=== PATIENT | male | born 1975 | race Caucasian/White ===

== ENCOUNTER 2019-12-22 12:50 | Emergency (ER) | payer SELFPAY ==
[2019-12-22 12:55] VITALS: BP 161/98; PULSE 103; RESP 24; TEMP 36.8; O2SAT 100
--- NOTE | 2019-12-22 12:58 | ECG_ITS ---
Measurements Intervals [place] Rate: 95 P: 39 MT: 182 QRS: 52 QRSD: 109 T: 14 QT: 346 QTc: 436 Interpretive Statements SINUS RHYTHM BASELINE ARTIFACT- I, II, III, AVR, AVL, AVF, V1 NORMAL ECG Electronically Signed On 12-23-2019 7:13:18 CDT by Michael Frazier D.O.
[2019-12-22] MEDS: ALPRAZOLAM 0.5 MG TABLET 1 MG PO (13:04)
--- NOTE | 2019-12-22 13:14 | ED.PSYCH ---
HPI - Psych General Chief Complaint: Psychiatric Symptoms Stated Complaint: sob Source: patient Mode of arrival: ambulatory Limitations: no limitations History of Present Illness HPI Narrative: this is a 44-year-old male patient with a history of depression /anxiety that presents with increasing anxiety currently is on antidepressant medication but had elevated levels of anxiety and smoked a couple of marijuana cigarettes which actually increased his anxiety level. Currently the patient is anxious denies chest pain no abdominal pain does feel short of breath and has some nausea with no vomiting no diarrhea no fever or chills. complaint: other (anxious) Onset (ago): hour(s) Duration: constant History of same: Yes Relieving factors: medication Exacerbating factors: drug use Context: recent drug abuse ( Marijuana) Associated psychiatric symptoms: depression Associated symptoms: shortness of breath and nausea Treatments prior to arrival: none Related Data Home Medications Medication Instructions Recorded Confirmed bupropion HCl 300 mg PO DAILY 12/22/19 12/22/19 citalopram 40 mg PO DAILY 12/22/19 12/22/19 fenofibrate 160 mg PO DAILY 12/22/19 12/22/19 lamotrigine 150 mg PO DAILY 12/22/19 12/22/19 levothyroxine 25 mcg PO DAILY 12/22/19 12/22/19 Allergies Allergy/AdvReac Type Severity Reaction Status Date / Time No Known Allergies Allergy Verified 12/22/19 13:07 Review of Systems Review of Systems: All systems reviewed & are unremarkable except as noted in HPI and below PMFSH Past Medical History Medical History Anxiety Depression Exam Const: General: no acute distress and alert Orientation/consciousness: patient oriented x3 HENMT: Head: normal to inspection Eyes: Conjunctivae: conjunctivae normal Pupils: Equal, round and reactive pupils present Neck: Neck: normal visual inspection and no lymphadenopathy Chest: Chest palpation & inspection: normal inspection of the chest and abnormal inspection of the chest Resp: Effort & Inspection: normal respiratory effort Auscultation: clear to auscultation bilaterally Cardio: Rate: regular rate Rhythm: regular rhythm GI: GI Palp: Yes Soft to palpation : Testes: Testes normal Skin: General skin exam: normal color Rashes: no rashes Neuro: General: patient oriented x3, moves all extremities, no meningeal signs and no focal motor deficits Extrem: General: normal to inspection Psych: Attitude: cooperative Other: anxious mood Course Vital Signs Vital signs: Vital Signs Temperature 36.8 C 12/22/19 12:55 Pulse Rate 103 H 12/22/19 12:55 Respiratory Rate 24 H 12/22/19 12:55 Blood Pressure 161/98 H 12/22/19 12:55 Pulse Oximetry 100 12/22/19 12:55 Temperature 36.8 C 12/22/19 12:55 Pulse Rate 103 H 12/22/19 12:55 Respiratory Rate 24 H 12/22/19 12:55 Blood Pressure 161/98 H 12/22/19 12:55 Pulse Oximetry 100 12/22/19 12:55 MDM - Psych ECG Data EKG #1: Attestation: I personally reviewed and interpreted this ECG as follows: ECG completion date: 12/22/19 ECG completion time: 13:06 Prior ECG tracings: not available for review EKG Interpretation: normal rate Critical Care Time Critical Care Time Critical Care Time: No Discharge Plan Discharge Clinical Impression: Anxiety Patient Disposition: Home, Self-Care Condition: Stable Instructions: Antibiotic Form, Anxiety (ED) Additional Instructions: Take medicine as prescribed, and follow-up with primary care physician if symptoms persist or worsen. Prescriptions: New alprazolam [Xanax] 0.5 mg tablet 0.5 mg PO TID PRN (Reason: anxiety) Qty: 14 RF: 0 No Action citalopram 40 mg tablet 40 mg PO DAILY RF: 0 levothyroxine 25 mcg tablet 25 mcg PO DAILY RF: 0 lamotrigine 100 mg tablet 150 mg PO DAILY RF: 0 bupropion HCl 300 mg tablet extended
[2019-12-22 13:26] VITALS: BP 137/94; PULSE 80; RESP 18; O2SAT 95
[2019-12-22 13:45] LABS: Hematocrit 44.1 % (40.0-54.0); Hemoglobin 14.9 g/dL (14.0-18.0); Mean Corpuscular HGB Conc 33.8 g/dL (32.0-36.0); Mean Corpuscular Hemoglobin 30.7 pg (27.0-31.0); Mean Corpuscular Volume 90.7 fL (78.0-102.0); Mean Platelet Volume 10.1 fl (8.7-11.0); Platelet Count Result 238 K/mm3 (150-420); Red Blood Count 4.86 M/mm3 (4.70-6.10); Red Cell Distribution Width 13.2 % (11.6-14.4); White Blood Count 5.2 K/mm3 (4.8-10.8)
[2019-12-22 14:02] LABS: Alanine Aminotransferase 36 U/L (16-63); Albumin Level 4.2 g/dL (3.4-5.0); Alkaline Phosphatase 39 U/L (46-116); Anion Gap 15.9 mmol/L (7-16); Aspartate Amino Transferase 21 U/L (15-37); Bilirubin,Total 0.3 mg/dL (0.00-1.00); Blood Urea Nitrogen 12 mg/dL (7-18); Calcium 9.1 mg/dL (8.5-10.1); Carbon Dioxide 24 mmol/L (21-32); Chloride 103 mmol/L (98-108); Estimated CRCL calculation 83 ml/min; Estimated Glomerular Filt Rate > 60; Glucose 128 mg/dL (70-99); Osmolality Calculated 289 mOsm/kg (285-295); Potassium 3.9 mmol/L (3.5-5.1); Sodium 139 mmol/L (136-145); Total Protein 7.3 g/dL (6.4-8.2)
[2019-12-22 14:03] LABS: Troponin I < 0.02 ng/mL (0.00-0.056)
[2019-12-22 14:15] VITALS: BP 139/89; PULSE 95; RESP 18; O2SAT 98
== END 2019-12-22 14:16 | disposition home or self-care (01) ==
PROVIDERS: Emergency Provider Emergency Medicine
DX: F41.9 Anxiety disorder, unspecified (principal)
CPT/HCPCS: 36415; 80053; 84484; 85027; 93005; 99283; 99284; A9270

== ENCOUNTER 2021-04-13 19:32 | Emergency (ER) | payer OTHER, SELFPAY ==
[2021-04-13 20:58] VITALS: BP 153/97; PULSE 88; RESP 20; TEMP 36.6; O2SAT 95
--- NOTE | 2021-04-13 21:34 | ED.EAR ---
HPI - Ear Problem General Chief complaint: Ear Stated complaint: ear pain Time Seen by Provider: 04/13/21 19:34 Source: patient and RN notes reviewed Mode of arrival: ambulatory Limitations: no limitations History of Present Illness Complaint: ear pain Location: right ear Duration: constant Severity: mild Relieving factors: NDAIDs Exacerbating factors: nothing Discharge from ear: Reports no Associated symptoms ear: tinnitus Treatment prior to arrival: none Related Data Home Medications Medication Instructions Recorded Confirmed citalopram 40 mg PO DAILY 12/22/19 04/13/21 lamotrigine 150 mg PO DAILY 12/22/19 04/13/21 levothyroxine 25 mcg PO DAILY 12/22/19 04/13/21 bupropion HCl 300 mg PO DAILY 04/13/21 04/13/21 famotidine 20 mg PO DAILY 04/13/21 04/13/21 Allergies Allergy/AdvReac Type Severity Reaction Status Date / Time No Known Allergies Allergy Verified 04/13/21 21:08 Review of Systems Review of Systems: All systems reviewed & are unremarkable except as noted in HPI and below Constitutional: Constitutional: Reports as per HPI and Reports no additional constitutional complaints Eyes: Eyes: Reports as per HPI and Reports no additional eye complaints ENT: Reports system reviewed and no additional complaints, except as documented and Reports as per HPI Cardiovascular: Cardiovascular: Reports as per HPI and Reports no additional cardiovascular complaints Respiratory: Respiratory: Reports as per HPI and Reports no additional respiratory complaints Gastrointestinal: Gastrointestinal: Reports as per HPI and Reports no additional gastrointestinal complaints Genitourinary: Genitourinary: Reports no additional male genitourinary complaints and Reports as per HPI Musculoskeletal: Musculoskeletal: Reports no additional musculoskeletal complaints and Reports as per HPI Integumentary/Breasts: Skin/Breast: Reports system reviewed and no additional complaints, except as docu and Reports as per HPI Neurologic: Reports system reviewed and no additional complaints, except as documented and Reports as per HPI Psychiatric: Psychiatric: Reports no additional psychiatric complaints and Reports as per HPI Endocrine: Endocrine: Reports no additional endocrine complaints and Reports as per HPI Hematologic/Lymphatic: Hematologic/Lymphatic: Reports no additional hematologic/lymphatic complaints and Reports as per HPI Allergic/Immunologic: Allergic/Immunologic: Reports no additional allergic/immunologic complaints and Reports as per HPI PMFSH Past Medical History Medical History (Updated 04/18/21 @ 08:49 by Cheng Cat MD) Anxiety Depression Social History Social History Gender identity (if verbalized by the patient): Male Exam Const: General: no acute distress and alert Nutritional Appearance: well nourished Orientation/consciousness: patient oriented x3 HENMT: Head: normal to inspection Ears: TM abnormal (mild dull left TM redness) Mouth: Yes lip normal and Yes moist mucous membranes Teeth and gingiva: dentition normal Throat: posterior oropharynx normal Eyes: Conjunctivae: conjunctivae normal Pupils: Equal, round and reactive pupils present EOM: EOMs intact bilaterally Neck: Neck: normal visual inspection and no lymphadenopathy Chest: Chest palpation & inspection: normal inspection of the chest Resp: Effort & Inspection: normal respiratory effort Auscultation: clear to auscultation bilaterally Cardio: Rate: regular rate Rhythm: regular rhythm GI: Inspection: distended Auscultation: normal bowel sounds : General: Yes no CVA tenderness Male General Exam: Yes normal external exam Testes: Testes normal Back/Spine/Pelvis: Back: no CVA tenderness Skin: General skin exam: normal color Rashes: no rashes Neuro: General: patient oriented x3, moves all extremities and no focal motor deficits Extrem: General: normal to inspection
[2021-04-13] MEDS: guaiFENesin 12 HR 600 MG TABCR PO (21:59)
[2021-04-13] MEDS: IBUPROFEN 400 MG TABLET 800 MG PO (21:59)
[2021-04-13 22:00] VITALS: BP 145/96; PULSE 84; RESP 20; TEMP 36.5; O2SAT 96
== END 2021-04-13 22:01 | disposition home or self-care (01) ==
PROVIDERS: Emergency Provider Emergency Medicine; PCP Family Medicine
DX: H60.91 Unspecified otitis externa, right ear (principal); H69.80 Other specified disorders of Eustachian tube, unspecified ear
CPT/HCPCS: 99283; A9270

== ENCOUNTER 2021-09-25 12:51 | Emergency (ER) | payer OTHER, SELFPAY ==
--- NOTE | ~2021-09-25 | XR_ITS ---
EXAMINATION: XR chest 1V portable DATE: 09/25/2021 13:56 INDICATION: Near syncope. TECHNIQUE: A single frontal view of the chest was obtained. COMPARISON: Chest single view 12/15/2018 FINDINGS: The chest demonstrates clear lungs without pneumonia, pleural effusion, or pneumothorax. Th e heart size is normal. IMPRESSION: 1. No acute cardiopulmonary disease. Reviewed, dictated and finalized at location A. D EFFECTS PERSON
--- NOTE | ~2021-09-25 | CT_ITS ---
EXAMINATION: CT brain wo con DATE: 09/25/2021 13:56 INDICATION: Syncope. TECHNIQUE: Computed tomography (CT) of the head was performed without intravenous contrast. The mA wa s adjusted according to patient size. Iterative reconstruction technique was employed. The dose-lengt h product was 681.00 mGy-cm. COMPARISON: Head CT 09/20/2018 FINDINGS: There is no intracranial hemorrhage, acute infarction, or abnormal intracranial mass lesion . The ventricles are normal in size. There is mild mucosal thickening in the paranasal sinuses. The o rbits are normal. The mastoid air cells are normal. IMPRESSION: 1. Normal brain. Reviewed, dictated and finalized at location A. HEMMER IMPRESSION: 1. Normal brain.
[2021-09-25 13:00] VITALS: BP 131/80; PULSE 70; RESP 20; TEMP 35.7; O2SAT 99
--- NOTE | 2021-09-25 13:28 | ECG_ITS ---
Measurements Intervals [place] Rate: 52 P: 44 [place]: 174 QRS: 35 QRSD: 113 T: 25 QT: 402 QTc: 376 Interpretive Statements SINUS BRADYCARDIA INTRAVENTRICULAR CONDUCTION DELAY MINIMAL Q WAVES- INFERIOR LEADS BASELINE ARTIFACT- I, III, AVR, AVL, AVF BORDERLINE ECG Electronically Signed On 09-25-2021 16:13:19 [employer] by Michael Frazier D.O.
--- NOTE | 2021-09-25 13:34 | ED.DIZZY ---
HPI - Dizziness General Chief Complaint: Dizziness Stated Complaint: dizzy/feeling sick/fatigue/not sleeping Time Seen by Provider: 09/25/21 12:53 Source: patient and RN notes reviewed Mode of arrival: ambulatory Limitations: no limitations History of Present Illness MD elicited complaint: dizziness and lightheadedness Onset (ago): day(s) (1) Timing: sudden onset Severity: mild Description: lightheadedness History of similar symptoms: Yes Relieving factors: nothing Associated symptoms: nausea Related Data Home Medications Medication Instructions Recorded Confirmed citalopram 40 mg PO DAILY 12/22/19 04/13/21 lamotrigine 150 mg PO DAILY 12/22/19 04/13/21 levothyroxine 25 mcg PO DAILY 12/22/19 04/13/21 bupropion HCl 300 mg PO DAILY 04/13/21 04/13/21 famotidine 20 mg PO DAILY 04/13/21 04/13/21 Allergies Allergy/AdvReac Type Severity Reaction Status Date / Time No Known Allergies Allergy Verified 04/13/21 21:08 Review of Systems Review of Systems: All systems reviewed & are unremarkable except as noted in HPI and below Neurologic: Reports dizziness PMFSH Past Medical History Medical History (Updated 09/25/21 @ 14:47 by Cheng Cat MD) Anxiety Depression Social History Social History Gender identity (if verbalized by the patient): Male Exam Const: General: no acute distress and alert Nutritional Appearance: well nourished Orientation/consciousness: patient oriented x3 HENMT: Head: normal to inspection Ears: TM's normal bilaterally General nose exam: Normal external nose present and Normal nares present Mouth: Yes moist mucous membranes Throat: posterior oropharynx normal Eyes: Conjunctivae: conjunctivae normal Pupils: Equal, round and reactive pupils present EOM: EOMs intact bilaterally Neck: Neck: normal visual inspection and no lymphadenopathy Chest: Chest palpation & inspection: normal inspection of the chest Resp: Effort & Inspection: normal respiratory effort Auscultation: clear to auscultation bilaterally Cardio: Rate: regular rate Rhythm: regular rhythm GI: GI Palp: Yes Soft to palpation and No Tenderness to palpation present (GI) : General: Yes bladder normal to palpation and Yes no CVA tenderness Male General Exam: Yes normal external exam Testes: Testes normal Back/Spine/Pelvis: Back: no CVA tenderness Skin: General skin exam: normal color Rashes: no rashes Neuro: General: patient oriented x3, moves all extremities, no meningeal signs, no focal motor deficits and CN's II-XI intact bilaterally Extrem: General: normal to inspection and no pedal edema Psych: Mental Status: mental status grossly normal Affect: normal affect Attitude: cooperative Thought content: Yes Normal thought content present Course Course Emergency Course: Pt ambulated normally in the ED. no acute sxs. Reevaluation(s) Reevaluation #1: vss. Date: 09/25/21 Time: 14:01 Vital Signs Vital signs: Vital Signs Temperature 35.7 C L 09/25/21 13:00 Pulse Rate 70 09/25/21 13:00 Respiratory Rate 20 09/25/21 13:00 Blood Pressure 131/80 09/25/21 13:00 Pulse Oximetry 99 09/25/21 13:00 Temperature 35.7 C L 09/25/21 13:00 Pulse Rate 70 09/25/21 13:00 Respiratory Rate 20 09/25/21 13:00 Blood Pressure 131/80 09/25/21 13:00 Pulse Oximetry 99 09/25/21 13:00 MDM - Dizziness Lab Data Result diagrams: 09/25/21 13:39 09/25/21 13:39 Labs: Lab Results 09/25/21 09/25/21 09/25/21 Range/Units 13:39 13:39 13:39 WBC 6.1 (4.8-10.8) K/mm3 RBC 5.02 (4.70-6.10) M/mm3 Hgb 16.2 (14.0-18.0) g/dL Hct 47.1 (40.0-54.0) % MCV 93.8 (78.0-102.0) fL MCH 32.3 H (27.0-31.0) pg MCHC 34.4 (32.0-36.0) g/dL RDW 12.4 (11.6-14.4) % Plt Count 227 (150-420) K/mm3 MPV 10.6 (8.7-11.0) fl Immature Gran % (Auto) 0.3 H (0.0-0.0) % Neut % (Auto) 5
[2021-09-25 13:49] LABS: Basophils Absolute Auto 0.06 K/mm3 (0.00-0.10); Eosinophils Absolute Auto 0.13 K/mm3 (0.02-0.50); Eosinophils Percent Auto 2.1 % (1.0-6.0); Hematocrit 47.1 % (40.0-54.0); Hemoglobin 16.2 g/dL (14.0-18.0); Immature Granulocyte Absolute 0.02 K/mm3 (0.00-0.00); Immature Granulocyte Percent A 0.3 % (0.0-0.0); Lymphocytes Percent Auto 34.3 % (18.0-42.0); Mean Corpuscular HGB Conc 34.4 g/dL (32.0-36.0); Mean Corpuscular Hemoglobin 32.3 pg (27.0-31.0); Mean Corpuscular Volume 93.8 fL (78.0-102.0); Mean Platelet Volume 10.6 fl (8.7-11.0); Monocytes Absolute Auto 0.48 K/mm3 (0.10-0.90); Monocytes Percent Auto 7.8 % (2.0-11.0); Neutrophils Absolute Auto 3.3 K/mm3 (1.7-7.2); Neutrophils Percent Auto 54.5 % (50.0-70.0); Platelet Count Result 227 K/mm3 (150-420); Red Blood Count 5.02 M/mm3 (4.70-6.10); Red Cell Distribution Width 12.4 % (11.6-14.4); White Blood Count 6.1 K/mm3 (4.8-10.8)
[2021-09-25] MEDS: ONDANSETRON INJ 4 MG/2 ML VIAL IV PUSH (14:00)
[2021-09-25] MEDS: SODIUM CHLORIDE 0.9% IV 1,000 ML 999 ML IV CONT (14:00)
[2021-09-25] MEDS: IBUPROFEN 400 MG TABLET 800 MG PO (14:01)
[2021-09-25 14:06] LABS: Amphetamine Screen Urine Negative (Negative); Barbiturate Screen Urine Negative (Negative); Benzodiazepines Screen Urine Negative (Negative); Cannabinoid Screen Urine Positive (Negative); Cocaine Screen Urine Negative (Negative); Methadone Screen Urine Negative (Negative); Opiate Screen Urine Negative (Negative); Phencyclidine Screen Urine Negative (Negative)
[2021-09-25 14:10] LABS: Alanine Aminotransferase 83 U/L (16-63); Albumin Level 4.2 g/dL (3.4-5.0); Alkaline Phosphatase 53 U/L (46-116); Anion Gap 9 mmol/L (8-16); Aspartate Amino Transferase 32 U/L (15-37); Bilirubin,Total 0.4 mg/dL (0.00-1.00); Blood Urea Nitrogen 11 mg/dL (7-18); Calcium 9.4 mg/dL (8.5-10.1); Carbon Dioxide 28 mmol/L (21-32); Chloride 101 mmol/L (98-108); Estimated CRCL calculation 87 ml/min; Estimated Glomerular Filt Rate > 60; Ethanol 5 mg/dL (0-6); Glucose 110 mg/dL (70-99); Osmolality Calculated 286 mOsm/kg (285-295); Potassium 4.1 mmol/L (3.5-5.1); Sodium 138 mmol/L (136-145); Total Protein 7.6 g/dL (6.4-8.2); Troponin I 4.9 ng/L (0.00-60.4)
[2021-09-25 14:18] LABS: SARS-CoV-2 RNA PCR Negative (Negative)
[2021-09-25 14:51] VITALS: BP 125/78; PULSE 78; RESP 20; TEMP 37.1; O2SAT 97
== END 2021-09-25 14:52 | disposition home or self-care (01) ==
PROVIDERS: Emergency Provider Emergency Medicine; PCP Family Medicine
DX: B34.9 Viral infection, unspecified (principal); Z20.822 Contact with and (suspected) exposure to COVID-19
CPT/HCPCS: 36415; 70450; 71045; 80053; 80307; 84484; 85025; 93005; 96361; 96374; 99283; 99284; A9270; C9803; J2405; J7030; U0003; U0005

== ENCOUNTER 2021-11-04 17:24 | Emergency (ER) | payer SELFPAY ==
[2021-11-04 17:35] VITALS: BP 149/97; PULSE 88; RESP 16; TEMP 35.9; O2SAT 98
[2021-11-04] MEDS: DACRIOSE EYE IRRIGATION 118 ML BOTTLE (17:50)
[2021-11-04] MEDS: FLUORESCEIN SOD 1 MG/STRIP (17:50)
[2021-11-04] MEDS: TETRACAINE HCL 0.5% OPHTH SOLN 4 ML BTL 1 DROP (17:50)
--- NOTE | 2021-11-04 17:50 | ED.EYEPROB ---
HPI - Eye Problem General Chief complaint: Eye Problems Stated complaint: rust in eye Source: patient Mode of arrival: ambulatory Limitations: no limitations History of Present Illness HPI Narrative: This is a 46-year-old gentleman that presents with irritation to the right eye while working had pea some metal or rest that flew into his right eye causing irritation and foreign body sensation with some redness with no blurry vision no visual changes. Patient is up-to-date with his tetanus vaccine currently there is no drainage or discharge. chief complaint: eye pain, eye redness, eye injury and foreign body Onset (ago): hour(s) Onset description: sudden Duration: improved Location: right eye Eye Symptoms: redness and foreign body sensation Place: home Mechanism: occurred while hammering/grinding If Pain, Quality: burning Related Data Home Medications Medication Instructions Recorded Confirmed citalopram 40 mg PO DAILY 12/22/19 11/04/21 levothyroxine 25 mcg PO DAILY 12/22/19 11/04/21 bupropion HCl 300 mg PO DAILY 04/13/21 11/04/21 famotidine 20 mg PO DAILY 04/13/21 11/04/21 Allergies Allergy/AdvReac Type Severity Reaction Status Date / Time No Known Allergies Allergy Verified 11/04/21 17:38 Review of Systems Review of Systems: All systems reviewed & are unremarkable except as noted in HPI and below PMFSH Past Medical History Medical History (Updated 11/04/21 @ 17:56 by Roman Pratt MD) Anxiety Depression Social History Social History Gender identity (if verbalized by the patient): Male Exam Const: General: no acute distress and alert Orientation/consciousness: patient oriented x3 HENMT: Head: normal to inspection Eyes: Pupils: Equal, round and reactive pupils present Other: Right eye irritation with some erythema to the conjunctiva foreign body sensation. Neck: Neck: normal visual inspection, no lymphadenopathy and no meningeal signs Chest: Chest palpation & inspection: normal inspection of the chest Resp: Effort & Inspection: normal respiratory effort Cardio: Rate: regular rate Rhythm: regular rhythm GI: GI Palp: Yes Soft to palpation : Testes: Testes normal Urinary Catheter: Urinary Catheter: patent and draining Back/Spine/Pelvis: Back: no CVA tenderness Skin: General skin exam: normal color Rashes: no rashes Neuro: General: patient oriented x3 and moves all extremities Extrem: General: normal to inspection Psych: Mental Status: mental status grossly normal Affect: normal affect Attitude: cooperative Course Course Emergency Course: Use tetracaine to numb the right eye was swept with a cotton swab and no foreign object was some elicited, irrigated the right eye with saline solution, floor seen stain was applied and there was no corneal abrasions. Will instill antibiotic eye drop to the right eye. Vital Signs Vital signs: Vital Signs Temperature 35.9 C L 11/04/21 17:35 Pulse Rate 88 11/04/21 17:35 Respiratory Rate 16 11/04/21 17:35 Blood Pressure 149/97 H 11/04/21 17:35 Pulse Oximetry 98 11/04/21 17:35 Temperature 35.9 C L 11/04/21 17:35 Pulse Rate 88 11/04/21 17:35 Respiratory Rate 16 11/04/21 17:35 Blood Pressure 149/97 H 11/04/21 17:35 Pulse Oximetry 98 11/04/21 17:35 Procedures FB Removal Eye Foreign Body #1: Foreign Body Removal Date: 11/04/21 Foreign Body Removal Time: 17:53 Time Out performed: Yes Location: eye (R) Topical anesthetic used: tetracaine Foreign body: other ( No foreign object listed, there was some Cotton that was removed the patient used earlier) Evidence of corneal penetration: No Technique: irrigation Procedure performed under: direct visualization with magnification Post-procedure medication: ophthalmic antibiotic Patient tolerated procedure: well Critical Care T
[2021-11-04] MEDS: NEOMYCIN/POLYMYXIN/HYDROCORT 7.5 ML EYE DROPS (*BKC) 1 DROP RIGHT EYE (18:09)
[2021-11-04 18:19] VITALS: BP 151/93; PULSE 71; RESP 16; TEMP 36.4; O2SAT 99
== END 2021-11-04 18:24 | disposition home or self-care (01) ==
PROVIDERS: Emergency Provider Emergency Medicine; PCP Family Medicine
DX: T15.91XA Foreign body on external eye, part unspecified, right eye, initial encounter (principal)
CPT/HCPCS: 99283; A9270

== ENCOUNTER 2021-12-18 23:01 | Emergency (ER) | payer SELFPAY ==
--- NOTE | 2021-12-18 23:14 | ED.GENADULT ---
HPI - General Adult General Chief complaint: Unspecified Stated complaint: nausea, headache, elevated BP, visual disturbance Time Seen by Provider: 12/18/21 23:18 Source: patient History of Present Illness HPI narrative: 46-year-old male with a history of anxiety/ depression, COVID vaccinated, presents with a one-week history of -- headache. Patient has headaches off and in the past his current headache much worse than his prior headaches. He had a CT of the head in August of this year which unremarkable. -- nausea Without any abdominal pain or vomiting. -- chest pressure. Patient has a history of chronic chest pressure. He has not had any prior stress tests. the pain is not related to exercise or activity. -- elevated blood pressure Onset (ago): day(s) ( started 7 days ago.) Location: head and chest Radiation: non-radiation Severity: mild Quality: aching Pain Consistency: intermittent Relieving factors: none Exacerbating factors: none Associated symptoms: denies other symptoms Treatments prior to arrival: none Related Data Home Medications Medication Instructions Recorded Confirmed levothyroxine 25 mcg PO DAILY 12/22/19 12/18/21 bupropion HCl 300 mg PO DAILY 04/13/21 12/18/21 famotidine 20 mg PO DAILY 04/13/21 12/18/21 Allergies Allergy/AdvReac Type Severity Reaction Status Date / Time No Known Allergies Allergy Verified 11/04/21 17:38 Review of Systems Review of Systems: All systems reviewed & are unremarkable except as noted in HPI and below Constitutional: Constitutional: Reports as per HPI, Reports no additional constitutional complaints and Reports headache(s) Eyes: Eyes: Reports as per HPI and Reports no additional eye complaints ENT: Reports system reviewed and no additional complaints, except as documented and Reports as per HPI Cardiovascular: Cardiovascular: Reports as per HPI, Reports no additional cardiovascular complaints and Reports chest pain ( Chest discomfort which is unrelated to activity or exercise. ) Comments: the chest discomfort usually comes on nightly after he eats Respiratory: Respiratory: Reports as per HPI and Reports no additional respiratory complaints Gastrointestinal: Gastrointestinal: Reports as per HPI and Reports no additional gastrointestinal complaints Genitourinary: Genitourinary: Reports no additional male genitourinary complaints and Reports as per HPI Musculoskeletal: Musculoskeletal: Reports no additional musculoskeletal complaints and Reports as per HPI Integumentary/Breasts: Skin/Breast: Reports system reviewed and no additional complaints, except as docu and Reports as per HPI Neurologic: Reports system reviewed and no additional complaints, except as documented and Reports as per HPI Psychiatric: Psychiatric: Reports no additional psychiatric complaints, Reports as per HPI and Reports anxiety Endocrine: Endocrine: Reports no additional endocrine complaints and Reports as per HPI Hematologic/Lymphatic: Hematologic/Lymphatic: Reports no additional hematologic/lymphatic complaints and Reports as per HPI Allergic/Immunologic: Allergic/Immunologic: Reports no additional allergic/immunologic complaints and Reports as per HPI [facility] Past Medical History Medical History (Updated 12/19/21 @ 00:27 by George Olmedo MD) Anxiety Depression Social History Social History Gender identity (if verbalized by the patient): Male Exam Const: General: cooperative, healthy appearing, comfortable and no acute distress HENMT: Head: normal to inspection, normocephalic and atraumatic Ears: hearing grossly normal bilaterally General nose exam: Normal external nose present Face and sinus: normal facial exam Mouth: Yes Normal oral and palatal mucosa present, Yes lip normal and Yes tongue normal Teeth and gingiva: dentition normal Throat: posterior oropharynx normal Eyes: General: appearance normal, marly
[2021-12-18 23:24] VITALS: BP 152/105; PULSE 86; RESP 18; TEMP 36.5; O2SAT 98
--- NOTE | 2021-12-18 23:25 | ECG_ITS ---
Measurements Intervals [place] Rate: 80 P: 23 [place]: 174 QRS: 35 QRSD: 104 T: -1 QT: 355 QTc: 412 Interpretive Statements SINUS RHYTHM WITHIN NORMAL LIMITS COMPARED TO ECG 09/25/2021 13:40:21 HEART RATE IS INCREASED NO OTHER SIGNIFICANT CHANGE Electronically Signed On 12-19-2021 8:14:46 CDT by Roman Meléndez M.D.
[2021-12-18 23:47] LABS: Basophils Absolute Auto 0.06 K/mm3 (0.00-0.10); Basophils Percent Auto 0.7 % (0.0-1.0); Eosinophils Absolute Auto 0.16 K/mm3 (0.02-0.50); Hematocrit 48.4 % (40.0-54.0); Hemoglobin 16.5 g/dL (14.0-18.0); Immature Granulocyte Absolute 0.03 K/mm3 (0.00-0.00); Immature Granulocyte Percent A 0.4 % (0.0-0.0); Lymphocytes Absolute Auto 2.95 K/mm3 (1.10-4.50); Lymphocytes Percent Auto 36.6 % (18.0-42.0); Mean Corpuscular HGB Conc 34.1 g/dL (32.0-36.0); Mean Corpuscular Hemoglobin 32.3 pg (27.0-31.0); Mean Corpuscular Volume 94.7 fL (78.0-102.0); Mean Platelet Volume 10.5 fl (8.7-11.0); Monocytes Absolute Auto 0.43 K/mm3 (0.10-0.90); Monocytes Percent Auto 5.3 % (2.0-11.0); Neutrophils Absolute Auto 4.4 K/mm3 (1.7-7.2); Platelet Count Result 221 K/mm3 (150-420); Red Blood Count 5.11 M/mm3 (4.70-6.10); White Blood Count 8.1 K/mm3 (4.8-10.8)
[2021-12-18 23:58] VITALS: BP 138/90; PULSE 80; RESP 18
[2021-12-19 00:14] LABS: Lactic Acid Reflex 1.6 mmol/L (0.4-2.0)
[2021-12-19 00:15] LABS: Alanine Aminotransferase 47 U/L (16-63); Alkaline Phosphatase 51 U/L (46-116); Anion Gap 11 mmol/L (8-16); Aspartate Amino Transferase 14 U/L (15-37); Bilirubin,Total 0.4 mg/dL (0.00-1.00); Blood Urea Nitrogen 13 mg/dL (7-18); Calcium 8.7 mg/dL (8.5-10.1); Carbon Dioxide 26 mmol/L (21-32); Chloride 103 mmol/L (98-108); Estimated CRCL calculation 100 ml/min; Estimated Glomerular Filt Rate > 60; Glucose 130 mg/dL (70-99); Lipase 112 U/L (73-393); NT Pro B Type Natriuretic Pept < 11 pg/mL (0-125); Osmolality Calculated 292 mOsm/kg (285-295); Sodium 140 mmol/L (136-145); Total Protein 7.1 g/dL (6.4-8.2); Troponin I 7.4 ng/L (0.00-60.4)
[2021-12-19] MEDS: KETOROLAC 30 MG/ML VIAL (*BKC) IM (00:29)
[2021-12-19 00:41] VITALS: BP 145/93; PULSE 84; RESP 18; TEMP 36.6; O2SAT 95
== END 2021-12-19 00:44 | disposition home or self-care (01) ==
PROVIDERS: Emergency Provider Internal Medicine Critical Care Medicine; PCP Family Medicine
DX: R07.89 Other chest pain (principal); K21.9 Gastro-esophageal reflux disease without esophagitis; R51.9 Headache, unspecified
CPT/HCPCS: 36415; 80053; 83605; 83690; 83880; 84484; 85025; 93005; 96372; 99284; J1885

== ENCOUNTER 2022-02-18 18:53 | Emergency (ER) | payer SELFPAY ==
--- NOTE | 2022-02-18 19:16 | ED.ANXIETY ---
HPI - Anxiety General Chief Complaint: Neck Pain/Injury Stated Complaint: vomiting/sob Time Seen by Provider: 02/18/22 19:16 Source: patient History of Present Illness HPI narrative: 46-year-old male with a history of hypertension, anxiety / depression, GERD, chronic chest discomfort presented to the ER with multiple complaints he complains of chronic -- shortness of breath -- swelling of his thyroid -- insomnia -- hypertension. he is not on any blood pressure medications. -- feels like a lump in his throat He had a thyroid ultrasound scan done today . MD complaint: anxiety and shortness of breath Onset (ago): week(s) Symptoms: dyspnea and muscle cramps Severity: mild Quality: constant Place: home History of similar episodes: Yes Provoking factors: none known Relieving factors: nothing Exacerbating factors: nothing Associated symptoms: denies other symptoms Related Data Home Medications Medication Instructions Recorded Confirmed levothyroxine 25 mcg tablet 25 mcg PO DAILY 12/22/19 02/18/22 bupropion HCl 300 mg 24 hr tablet, 300 mg PO DAILY 04/13/21 02/18/22 extended release famotidine 20 mg tablet 20 mg PO DAILY 04/13/21 02/18/22 omeprazole 20 mg capsule,delayed 1 cap PO DAILY 02/18/22 02/18/22 release Allergies Allergy/AdvReac Type Severity Reaction Status Date / Time No Known Allergies Allergy Verified 02/18/22 19:19 Review of Systems Review of Systems: All systems reviewed & are unremarkable except as noted in HPI and below Constitutional: Constitutional: Reports as per HPI and Reports no additional constitutional complaints Eyes: Eyes: Reports as per HPI and Reports no additional eye complaints ENT: Reports system reviewed and no additional complaints, except as documented and Reports as per HPI Comments: throat tightness. Feels like a lump in his throat. Cardiovascular: Cardiovascular: Reports as per HPI and Reports no additional cardiovascular complaints Respiratory: Respiratory: Reports as per HPI, Reports no additional respiratory complaints and Reports dyspnea Gastrointestinal: Gastrointestinal: Reports as per HPI and Reports no additional gastrointestinal complaints Genitourinary: Genitourinary: Reports no additional male genitourinary complaints and Reports as per HPI Musculoskeletal: Musculoskeletal: Reports no additional musculoskeletal complaints and Reports as per HPI Integumentary/Breasts: Skin/Breast: Reports system reviewed and no additional complaints, except as docu and Reports as per HPI Neurologic: Reports system reviewed and no additional complaints, except as documented and Reports as per HPI Psychiatric: Psychiatric: Reports no additional psychiatric complaints and Reports as per HPI Comments: Insomnia Endocrine: Endocrine: Reports no additional endocrine complaints and Reports as per HPI Hematologic/Lymphatic: Hematologic/Lymphatic: Reports no additional hematologic/lymphatic complaints and Reports as per HPI Allergic/Immunologic: Allergic/Immunologic: Reports no additional allergic/immunologic complaints and Reports as per HPI PMFSH Past Medical History Medical History (Updated 02/18/22 @ 19:55 by George Olmedo MD) Anxiety Depression Social History Social History Gender identity (if verbalized by the patient): Male Exam Const: General: healthy appearing and no acute distress Nutritional Appearance: well nourished Orientation/consciousness: patient oriented x3 Limitations: no limitations Other: hypertension with a blood pressure of 149/98. HENMT: Head: normal to inspection Ears: external ears normal General nose exam: Normal external nose present Face and sinus: normal facial exam Mouth: Yes Normal oral and palatal mucosa present Throat: posterior oropharynx normal Eyes: Conjunctivae: conjunctivae normal Pupils: Equal, round and reactive pupils present EOM: EOMs intact b
[2022-02-18 19:21] VITALS: BP 149/98; PULSE 67; RESP 17; TEMP 36.4; O2SAT 99
[2022-02-18] MEDS: ALPRAZolam (*CRX) 0.5 MG TABLET PO (19:58)
[2022-02-18 20:23] VITALS: BP 153/93; PULSE 63; RESP 16; TEMP 36.3; O2SAT 99
== END 2022-02-18 20:24 | disposition home or self-care (01) ==
PROVIDERS: Emergency Provider Internal Medicine Critical Care Medicine; PCP Family Medicine
DX: F41.9 Anxiety disorder, unspecified (principal); F45.8 Other somatoform disorders; I10 Essential (primary) hypertension
CPT/HCPCS: 99283; A9270

== ENCOUNTER 2022-03-02 19:59 | Emergency (ER) | payer BC, SELFPAY ==
--- NOTE | ~2022-03-02 | XR_ITS ---
EXAM: XR shoulder RT min 2V DATE: 03/02/2022 20:58 HISTORY: pain in joint w/o injury . COMPARISON: None available. FINDINGS: Normal mineralization. No fracture or dislocation. No lytic or blastic lesion. Joint space s are maintained. No erosion or periosteal change. Soft tissues within normal limits. IMPRESSION: No acute osseous finding in the right shoulder. Reviewed, dictated and finalized at location K.
[2022-03-02 20:05] VITALS: BP 150/100; PULSE 77; RESP 20; TEMP 36.6; O2SAT 98
--- NOTE | 2022-03-02 20:31 | ED.EXTPRO ---
HPI - Extremity Problem General Chief complaint: Extremity Problem,Nontraumatic Stated complaint: shoulder pain Time Seen by Provider: 03/02/22 20:03 Source: patient and RN notes reviewed Mode of arrival: ambulatory Limitations: no limitations History of Present Illness MD Complaint: extremity pain (right anterior shoulder pain x 3 weeks. no acute injury) Onset (ago): week(s) Pain Consistency: constant Location: right and upper extremity Severity scale (1-10): 5 Quality: aching, dull and constant Radiation: proximal Relieving factors: medication Exacerbating factors: range of motion Associated symptoms: denies other symptoms Related Data Home Medications Medication Instructions Recorded Confirmed levothyroxine 25 mcg tablet 25 mcg PO DAILY 12/22/19 03/02/22 bupropion HCl 300 mg 24 hr tablet, 300 mg PO DAILY 04/13/21 03/02/22 extended release famotidine 20 mg tablet 20 mg PO DAILY 04/13/21 03/02/22 omeprazole 20 mg capsule,delayed 1 cap PO DAILY 02/18/22 03/02/22 release Allergies Allergy/AdvReac Type Severity Reaction Status Date / Time No Known Allergies Allergy Verified 02/18/22 19:19 Review of Systems Review of Systems: All systems reviewed & are unremarkable except as noted in HPI and below Constitutional: Constitutional: Reports no additional constitutional complaints Eyes: Eyes: Reports no additional eye complaints ENT: Reports system reviewed and no additional complaints, except as documented Cardiovascular: Cardiovascular: Reports no additional cardiovascular complaints Respiratory: Respiratory: Reports no additional respiratory complaints Gastrointestinal: Gastrointestinal: Reports no additional gastrointestinal complaints Musculoskeletal: Musculoskeletal: Reports no additional musculoskeletal complaints Integumentary/Breasts: Skin/Breast: Reports system reviewed and no additional complaints, except as docu Neurologic: Reports system reviewed and no additional complaints, except as documented Psychiatric: Psychiatric: Reports no additional psychiatric complaints Endocrine: Endocrine: Reports no additional endocrine complaints Hematologic/Lymphatic: Hematologic/Lymphatic: Reports no additional hematologic/lymphatic complaints Allergic/Immunologic: Allergic/Immunologic: Reports no additional allergic/immunologic complaints PMFSH Past Medical History Medical History (Updated 03/02/22 @ 20:53 by Cheng Cat MD) Anxiety Depression Shoulder pain, right Social History Social History Gender identity (if verbalized by the patient): Male Exam Const: General: healthy appearing and no acute distress Nutritional Appearance: well nourished Orientation/consciousness: patient oriented x3 Limitations: no limitations HENMT: Head: normal to inspection Ears: external ears normal, TM's normal bilaterally and EAC's normal General nose exam: Normal external nose present and Normal nares present Face and sinus: normal facial exam and sinuses nontender Mouth: Yes Normal oral and palatal mucosa present and Yes moist mucous membranes Teeth and gingiva: dentition normal Throat: posterior oropharynx normal Eyes: Conjunctivae: conjunctivae normal Pupils: Equal, round and reactive pupils present EOM: EOMs intact bilaterally Neck: Neck: normal visual inspection, no lymphadenopathy and no meningeal signs Chest: Chest palpation & inspection: normal inspection of the chest Resp: Effort & Inspection: normal respiratory effort Auscultation: clear to auscultation bilaterally Cardio: Rate: regular rate Rhythm: regular rhythm GI: GI Palp: Yes Soft to palpation and No Tenderness to palpation present (GI) Auscultation: normal bowel sounds : General: Yes bladder normal to palpation and Yes no CVA tenderness Back/Spine/Pelvis: Back: no CVA tenderness Skin: General skin exam: normal color Rashes: no rashes Wounds: no wounds N
[2022-03-02] MEDS: KETOROLAC 30 MG/ML VIAL (*BKC) IM (20:32)
[2022-03-02 21:05] VITALS: BP 132/82; PULSE 81; RESP 18; O2SAT 99
== END 2022-03-02 21:10 | disposition home or self-care (01) ==
PROVIDERS: Emergency Provider Emergency Medicine; PCP Family Medicine
DX: S46.911A Strain of unspecified muscle, fascia and tendon at shoulder and upper arm level, right arm, initial encounter (principal)
CPT/HCPCS: 73030; 96372; 99283; A4565; J1885

== ENCOUNTER 2022-05-12 11:31 | Emergency (ER) | payer BC, SELFPAY ==
--- NOTE | ~2022-05-12 | XR_ITS ---
EXAMINATION: XR chest 1V portable INDICATION: Shortness of breath TECHNIQUE: Portable AP chest at 1306 hours COMPARISON: 09/25/2021 FINDINGS: The lungs are free of acute opacities. No pleural effusion or pneumothorax. The cardiomedia stinal silhouette is normal. IMPRESSION: 1. No acute cardiopulmonary abnormality. Reviewed, dictated and finalized at location B.
--- NOTE | ~2022-05-12 | CT_ITS ---
EXAMINATION: CT abdomen pelvis w con DATE: 05/12/2022 13:13 INDICATION: Abdominal pain. Nausea and vomiting. TECHNIQUE: Computed tomography (CT) of the abdomen and pelvis was performed with 100 mL Omnipaque 350 intravenous contrast. Automated exposure control and iterative reconstruction technique were employe d. The dose-length product was 635.75 mGy-cm. COMPARISON: None. FINDINGS: The visualized portions of the lung bases demonstrate minimal atelectasis. There is a 4 mm nodule in right lower lobe. There is a 4 mm nodule right middle lobe. These findings are likely benig n. No pleural effusion. The heart size is normal. No pericardial effusion. There is diffuse hepatic s teatosis. The gallbladder, spleen, pancreas, adrenal glands, and kidneys are normal. There are bilate ral inguinal hernias containing fat. There are no dilated loops of bowel. The appendix is normal. The re are no pathologically enlarged lymph nodes. There is no free intraperitoneal fluid. There is mild thoracolumbar spondylosis. IMPRESSION: 1. Diffuse hepatic steatosis. 2. Bilateral inguinal hernias containing fat. Reviewed, dictated and finalized at location A.
--- NOTE | 2022-05-12 11:49 | ECG_ITS ---
Measurements Intervals [place] Rate: 57 P: 39 CA: 189 QRS: 98 QRSD: 123 T: 7 QT: 439 QTc: 430 Interpretive Statements SINUS BRADYCARDIA RIGHT AXIS DEVIATION MINIMAL Q WAVES- INFERIOR LEADS BORDERLINE ST-T WAVE ABNORMALITY- INFERIOR LEADS BORDERLINE ECG COMPARED TO ECG 12/18/2021 23:36:03 SINUS BRADYCARDIA NOW PRESENT Electronically Signed On 05-12-2022 13:41:22 CDT by Michael Frazier D.O.
[2022-05-12] MEDS: SODIUM CHLORIDE 0.9% IV 1,000 ML 999 ML IV CONT (12:03)
[2022-05-12] MEDS: ONDANSETRON INJ 4 MG/2 ML VIAL IV PUSH (12:06)
[2022-05-12] MEDS: PANTOPRAZOLE SODIUM IV 40 MG VIAL IV PUSH (12:06)
[2022-05-12 12:09] LABS: Basophils Absolute Auto 0.05 K/mm3 (0.00-0.10); Basophils Percent Auto 0.8 % (0.0-1.0); Eosinophils Absolute Auto 0.08 K/mm3 (0.02-0.50); Eosinophils Percent Auto 1.2 % (1.0-6.0); Hematocrit 43.5 % (40.0-54.0); Hemoglobin 15.1 g/dL (14.0-18.0); Immature Granulocyte Absolute 0.01 K/mm3 (0.00-0.00); Immature Granulocyte Percent A 0.2 % (0.0-0.0); Lymphocytes Absolute Auto 1.77 K/mm3 (1.10-4.50); Lymphocytes Percent Auto 27.5 % (18.0-42.0); Mean Corpuscular HGB Conc 34.7 g/dL (32.0-36.0); Mean Corpuscular Volume 92.2 fL (78.0-102.0); Mean Platelet Volume 10.6 fl (8.7-11.0); Monocytes Absolute Auto 0.33 K/mm3 (0.10-0.90); Monocytes Percent Auto 5.1 % (2.0-11.0); Neutrophils Absolute Auto 4.2 K/mm3 (1.7-7.2); Neutrophils Percent Auto 65.2 % (50.0-70.0); Platelet Count Result 196 K/mm3 (150-420); Red Blood Count 4.72 M/mm3 (4.70-6.10); White Blood Count 6.4 K/mm3 (4.8-10.8)
[2022-05-12 12:27] VITALS: BP 115/73; PULSE 70; RESP 20; TEMP 36.3; O2SAT 98
[2022-05-12 12:28] LABS: Lactic Acid Reflex 1.5 mmol/L (0.4-2.0)
[2022-05-12 12:34] LABS: Alanine Aminotransferase 40 U/L (16-63); Albumin Level 3.8 g/dL (3.4-5.0); Alkaline Phosphatase 48 U/L (46-116); Anion Gap 8 mmol/L (8-16); Aspartate Amino Transferase 19 U/L (15-37); Bilirubin,Total 0.4 mg/dL (0.00-1.00); Blood Urea Nitrogen 13 mg/dL (7-18); Calcium 8.8 mg/dL (8.5-10.1); Carbon Dioxide 25 mmol/L (21-32); Chloride 105 mmol/L (98-108); Estimated CRCL calculation 99 ml/min; Estimated Glomerular Filt Rate > 60; Glucose 140 mg/dL (70-99); Lipase 85 U/L (73-393); Osmolality Calculated 288 mOsm/kg (285-295); Potassium 3.7 mmol/L (3.5-5.1); Sodium 138 mmol/L (136-145); Total Protein 6.5 g/dL (6.4-8.2); Troponin I 7.9 ng/L (0.00-60.4)
[2022-05-12 12:43] LABS: Influenza A QL RT-PCR Negative (Negative); Influenza B QL RT-PCR Negative (Negative); SARS-CoV-2 RNA PCR Negative (Negative)
--- NOTE | 2022-05-12 13:05 | ED.NAVMDI ---
HPI - Nausea/Vomiting/Diarrhea General Chief complaint: Nausea/Vomiting/Diarrhea Stated complaint: SICK TO STOMACHE/DRY MOUTH/STUFFY NOSE Time Seen by Provider: 05/12/22 11:44 Source: patient Limitations: no limitations History of Present Illness HPI Narrative: this is a 46-year-old gentleman that presents with some feeling of queasiness with the last day or so with nausea no vomiting has been having some abdominal pain he rates about 4/10 diffuse with no diarrhea or constipation no fever chills does complain of some mild shortness of breath, no chest pain, the patient does have a history of anxiety disorder there is no nasal congestion no headache no blurry vision. MD elicited complaint: nausea Onset (ago): day(s) Associated nausea: Yes Associated abdominal pain: Yes Location of pain: diffuse Related Data Home Medications Medication Instructions Recorded Confirmed levothyroxine 25 mcg tablet 25 mcg PO DAILY 12/22/19 03/02/22 bupropion HCl 300 mg 24 hr tablet, 300 mg PO DAILY 04/13/21 03/02/22 extended release famotidine 20 mg tablet 20 mg PO DAILY 04/13/21 03/02/22 omeprazole 20 mg capsule,delayed 1 cap PO DAILY 02/18/22 03/02/22 release Allergies Allergy/AdvReac Type Severity Reaction Status Date / Time No Known Allergies Allergy Verified 05/12/22 12:51 Review of Systems Review of Systems: All systems reviewed & are unremarkable except as noted in HPI and below PMFSH Past Medical History Medical History Anxiety Depression Shoulder pain, right Social History Social History Gender identity (if verbalized by the patient): Male Exam Const: General: healthy appearing, no acute distress and alert Nutritional Appearance: well nourished Limitations: no limitations HENMT: Head: normal to inspection Face and sinus: normal facial exam Eyes: Conjunctivae: conjunctivae normal Pupils: Equal, round and reactive pupils present EOM: EOMs intact bilaterally Neck: Neck: normal visual inspection, no lymphadenopathy and no meningeal signs Chest: Chest palpation & inspection: normal inspection of the chest Resp: Effort & Inspection: normal respiratory effort Auscultation: clear to auscultation bilaterally Cardio: Rate: regular rate Rhythm: regular rhythm GI: GI Palp: Yes Soft to palpation and Yes Tenderness to palpation present (GI) Auscultation: normal bowel sounds Urinary Catheter: Urinary Catheter: patent and draining Back/Spine/Pelvis: Back: no CVA tenderness Skin: General skin exam: normal color Rashes: no rashes Wounds: no wounds Neuro: General: patient oriented x3, moves all extremities, no meningeal signs and no focal motor deficits Extrem: General: normal to inspection Psych: Mental Status: mental status grossly normal Affect: normal affect Course Course Emergency Course: Patient had IV fluids and received IV Protonix and Zofran, a CT scan of abdomen reviewed with patient, labs reviewed, and has negative flu negative COVID. Vital Signs Vital signs: Vital Signs Temperature 36.3 C L 05/12/22 12:27 Pulse Rate 70 05/12/22 12:27 Respiratory Rate 20 05/12/22 12:27 Blood Pressure 115/73 05/12/22 12:27 Pulse Oximetry 98 05/12/22 12:27 Oxygen Delivery Room Air 05/12/22 12:27 Temperature 36.3 C L 05/12/22 12:27 Pulse Rate 70 05/12/22 12:27 Respiratory Rate 20 05/12/22 12:27 Blood Pressure 115/73 05/12/22 12:27 Pulse Oximetry 98 05/12/22 12:27 Oxygen Delivery Room Air 05/12/22 12:27 MDM - Nausea/Vomiting/Diarrhea Lab Data Result diagrams: 05/12/22 12:04 05/12/22 12:04 Labs: Lab Results 05/12/22 05/12/22 05/12/22 Range/Units 12:04 12:04 12:04 WBC 6.4 (4.8-10.8) K/mm3 RBC 4.72 (4.70-6.10) M/mm3 Hgb 15.1 (14.0-18.0) g/dL Hct 43.5 (40.0-54.0) % MCV 92.2 (78.0-102.0)
[2022-05-12 13:50] VITALS: BP 118/76; PULSE 61; RESP 20; TEMP 36.6; O2SAT 99
== END 2022-05-12 13:58 | disposition home or self-care (01) ==
PROVIDERS: Emergency Provider Emergency Medicine; PCP Family Medicine
DX: K76.9 Liver disease, unspecified (principal); Z20.822 Contact with and (suspected) exposure to COVID-19
CPT/HCPCS: 36415; 71045; 74177; 80053; 83605; 83690; 84484; 85025; 87502; 93005; 96361; 96374; 96375; 99284; C9113; C9803; J2405; J7030; Q9967; U0003; U0005

== ENCOUNTER 2022-05-13 22:28 | Emergency (ER) | payer BC, SELFPAY ==
--- NOTE | ~2022-05-13 | XR_ITS ---
EXAMINATION: XR chest 2V DATE: 05/13/2022 23:16 INDICATION: Dyspnea. TECHNIQUE: Frontal and lateral views of the chest were obtained. COMPARISON: Chest single view 05/12/2022, CT abdomen and pelvis 05/12/2022 FINDINGS: The chest demonstrates clear lungs without pneumonia, pleural effusion, or pneumothorax. Th e heart size is normal. IMPRESSION: 1. No acute cardiopulmonary disease. Reviewed, dictated and finalized at location A.
[2022-05-13 22:35] VITALS: BP 145/97; PULSE 70; RESP 18; TEMP 36.6; O2SAT 99
--- NOTE | 2022-05-13 22:45 | ED.SOB ---
HPI - SOB/Dyspnea General Chief Complaint: Upper Respiratory Infection Stated Complaint: SHORTNESS OF BREATH, VOMITING Time Seen by Provider: 05/13/22 22:29 Source: patient and RN notes reviewed Mode of arrival: ambulatory Limitations: no limitations History of Present Illness HPI Narrative: Patient has been having this symptoms for the last 3-4 days. He was here yesterday had a complete workup including COVID flu and everything was negative and he was discharged. He then went to [facility] yesterday and they did a similar workup according to the patient and everything was negative and he was discharged with a viral gastroenteritis. He went to see his primary care physician this morning and he was told that if his symptoms persist to go to the emergency room. Patient does have a history of bad anxiety. He took his anxiety medication at home and is not feeling any better. He says he feels short of breath and he has been vomiting when he gets anxious. He denies any diaphoresis. He denied to me any chest pain. No fever no chills no cough no diarrhea no body aches no sore throat no headache. MD elicited complaint: anxiety Onset (ago): day(s) (3) Context: recent illness Timing: intermittent Severity: moderate Exacerbating factors: nothing Relieving factors: nothing Associated symptoms: nausea/vomiting Treatment prior to arrival: none Related Data Home oxygen amount: none Home Medications Medication Instructions Recorded Confirmed levothyroxine 25 mcg tablet 25 mcg PO DAILY 12/22/19 05/13/22 bupropion HCl 300 mg 24 hr tablet, 300 mg PO DAILY 04/13/21 05/13/22 extended release famotidine 20 mg tablet 20 mg PO DAILY 04/13/21 05/13/22 Allergies Allergy/AdvReac Type Severity Reaction Status Date / Time No Known Allergies Allergy Verified 05/12/22 12:51 Review of Systems Review of Systems: All systems reviewed & are unremarkable except as noted in HPI and below PMFSH Past Medical History Medical History Anxiety Depression Shoulder pain, right Social History Social History Gender identity (if verbalized by the patient): Male Exam Const: General: healthy appearing, no acute distress and alert Nutritional Appearance: well nourished Orientation/consciousness: patient oriented x3 Limitations: no limitations HENMT: Head: normal to inspection Ears: external ears normal Face and sinus: normal facial exam Eyes: Conjunctivae: conjunctivae normal Pupils: Equal, round and reactive pupils present EOM: EOMs intact bilaterally Neck: Neck: normal visual inspection Resp: Effort & Inspection: normal respiratory effort Auscultation: clear to auscultation bilaterally Cardio: Rate: regular rate Rhythm: regular rhythm GI: GI Palp: Yes Soft to palpation and No Tenderness to palpation present (GI) Auscultation: normal bowel sounds Back/Spine/Pelvis: Cervical Spine: cervical ROM normal Thoracic/Lumbar Spine: thoraco-lumbar ROM normal Skin: General skin exam: normal color Rashes: no rashes Neuro: General: patient oriented x3, moves all extremities and no focal motor deficits Speech: normal speech Gait exam (Neuro): Normal gait present Extrem: General: normal to inspection and no clubbing, cyanosis or edema Psych: Mental Status: mental status grossly normal Affect: Anxious affect present Attitude: cooperative Course Vital Signs Vital signs: Vital Signs Temperature 36.6 C 05/13/22 22:35 Pulse Rate 70 05/13/22 22:35 Respiratory Rate 18 05/13/22 22:35 Blood Pressure 145/97 H 05/13/22 22:35 Pulse Oximetry 99 05/13/22 22:35 Oxygen Delivery Room Air 05/13/22 22:35 Temperature 36.5 C 05/13/22 23:39 Pulse Rate 74 05/13/22 23:39 Respiratory Rate 20 05/13/22 23:39 Blood Pressure 125/82 05/13/22 23:39 Pulse Oximetry 98 05/13/22 23:39 Oxygen Delivery Room Air
--- NOTE | 2022-05-13 22:49 | ECG_ITS ---
Measurements Intervals [place] Rate: 70 P: 29 [place]: 187 QRS: 17 QRSD: 109 T: 4 QT: 388 QTc: 421 Interpretive Statements SINUS RHYTHM INCOMPLETE RIGHT BUNDLE BRANCH BLOCK LOW QRS VOLTAGE IN PRECORDIAL LEADS BASELINE WANDER- II, III BORDERLINE ECG COMPARED TO ECG 05/12/2022 12:33:25 HEART RATE HAS INCREASED Electronically Signed On 05-14-2022 10:21:03 CDT by Michael Frazier D.O.
[2022-05-13 23:05] LABS: Basophils Absolute Auto 0.06 K/mm3 (0.00-0.10); Basophils Percent Auto 0.8 % (0.0-1.0); Eosinophils Absolute Auto 0.11 K/mm3 (0.02-0.50); Eosinophils Percent Auto 1.5 % (1.0-6.0); Hematocrit 46.1 % (40.0-54.0); Hemoglobin 15.8 g/dL (14.0-18.0); Immature Granulocyte Absolute 0.01 K/mm3 (0.00-0.00); Immature Granulocyte Percent A 0.1 % (0.0-0.0); Lymphocytes Absolute Auto 2.39 K/mm3 (1.10-4.50); Lymphocytes Percent Auto 31.7 % (18.0-42.0); Mean Corpuscular HGB Conc 34.3 g/dL (32.0-36.0); Mean Corpuscular Hemoglobin 31.5 pg (27.0-31.0); Mean Platelet Volume 10.5 fl (8.7-11.0); Monocytes Absolute Auto 0.42 K/mm3 (0.10-0.90); Monocytes Percent Auto 5.6 % (2.0-11.0); Neutrophils Absolute Auto 4.5 K/mm3 (1.7-7.2); Neutrophils Percent Auto 60.3 % (50.0-70.0); Platelet Count Result 200 K/mm3 (150-420); Red Blood Count 5.01 M/mm3 (4.70-6.10); Red Cell Distribution Width 12.2 % (11.6-14.4); White Blood Count 7.5 K/mm3 (4.8-10.8)
[2022-05-13 23:23] LABS: Alanine Aminotransferase 44 U/L (16-63); Albumin Level 4.1 g/dL (3.4-5.0); Alkaline Phosphatase 51 U/L (46-116); Anion Gap 8 mmol/L (8-16); Aspartate Amino Transferase 22 U/L (15-37); Bilirubin,Total 0.8 mg/dL (0.00-1.00); Blood Urea Nitrogen 14 mg/dL (7-18); Calcium 9.2 mg/dL (8.5-10.1); Carbon Dioxide 28 mmol/L (21-32); Chloride 103 mmol/L (98-108); Estimated Glomerular Filt Rate 56; Glucose 122 mg/dL (70-99); Magnesium 2.2 mg/dL (1.8-2.4); Osmolality Calculated 289 mOsm/kg (285-295); Potassium 3.6 mmol/L (3.5-5.1); Sodium 139 mmol/L (136-145); Troponin I 10.4 ng/L (0.00-60.4)
[2022-05-13 23:39] VITALS: BP 125/82; PULSE 74; RESP 20; TEMP 36.5; O2SAT 98
== END 2022-05-13 23:46 | disposition home or self-care (01) ==
PROVIDERS: Emergency Provider Emergency Medicine; PCP Family Medicine
DX: F41.9 Anxiety disorder, unspecified (principal)
CPT/HCPCS: 36415; 71046; 80053; 83735; 84484; 85025; 93005; 99284

== ENCOUNTER 2022-06-09 21:27 | Emergency (ER) | payer BC, SELFPAY ==
[2022-06-09 21:30] VITALS: BP 143/101; PULSE 79; RESP 20; TEMP 36.7; O2SAT 99
[2022-06-09 21:35] VITALS: PULSE 73
--- NOTE | 2022-06-09 21:42 | PC.NURSE ---
2130 pt taken to room #4, mother insisting on coming to room with pt. when in room explained policy if pt has symptoms of covid, no visitors are allowed until testing completed. requested papers from er visit in [place]. pt stated they are in the car. asked mother if she could get papers from car. mother yelling at this commercial insurance underwriter. im disabled. explained that i could get help to get her out to car with wheelchair, mother stated i will go get paperwork and departed from room.
--- NOTE | 2022-06-09 21:45 | ECG_ITS ---
Measurements Intervals [place] Rate: 69 P: 35 NE: 179 QRS: 20 QRSD: 109 T: 17 QT: 386 QTc: 416 Interpretive Statements SINUS RHYTHM NORMAL ELECTROCARDIOGRAM COMPARED TO ECG 05/13/2022 23:01:05 NO SIGNIFICANT CHANGES Electronically Signed On 06-10-2022 15:51:16 CDT by Roman Meléndez M.D.
--- NOTE | 2022-06-09 21:57 | ED.GENADULT ---
HPI - General Adult General Chief complaint: Chest Pain Stated complaint: stomach pain, hard time breathing Time Seen by Provider: 06/09/22 21:29 Source: patient and family Mode of arrival: ambulatory Limitations: no limitations History of Present Illness HPI narrative: this is a 46-year-old patient that has had numerous ER visits recently going to different ERs and actually went to ER and [place] this morning had workup that was unremarkable. Currently complaining of anxiety has some stomach discomfort and episode of nausea otherwise no fever chills no palpitations no shortness of breath no chest pain. Patient has been recently diagnosed with generalized anxiety disorder. Onset (ago): month(s) Location: abdomen Severity: mild Related Data Home Medications Medication Instructions Recorded Confirmed levothyroxine 25 mcg tablet 25 mcg PO DAILY 12/22/19 05/13/22 bupropion HCl 300 mg 24 hr tablet, 300 mg PO DAILY 04/13/21 05/13/22 extended release famotidine 20 mg tablet 20 mg PO DAILY 04/13/21 05/13/22 Allergies Allergy/AdvReac Type Severity Reaction Status Date / Time No Known Allergies Allergy Verified 05/12/22 12:51 Review of Systems Review of Systems: All systems reviewed & are unremarkable except as noted in HPI and below PMFSH Past Medical History Medical History Anxiety Depression Shoulder pain, right Social History Social History Gender identity (if verbalized by the patient): Male Exam Const: General: healthy appearing HENMT: Head: normal to inspection Face and sinus: normal facial exam Mouth: Yes Normal oral and palatal mucosa present Teeth and gingiva: dentition normal Eyes: Conjunctivae: conjunctivae normal Pupils: Equal, round and reactive pupils present Neck: Neck: normal visual inspection, no lymphadenopathy and no meningeal signs Chest: Chest palpation & inspection: normal inspection of the chest Resp: Effort & Inspection: normal respiratory effort Auscultation: clear to auscultation bilaterally Cardio: Rate: regular rate Rhythm: regular rhythm GI: GI Palp: Yes Soft to palpation Auscultation: normal bowel sounds : General: Yes bladder normal to palpation Back/Spine/Pelvis: Back: no CVA tenderness Skin: General skin exam: normal color Rashes: no rashes Wounds: no wounds Neuro: General: patient oriented x3, moves all extremities, no meningeal signs and no focal motor deficits Extrem: General: normal to inspection Psych: Affect: Anxious affect present Course Course Emergency Course: workup that was performed in [facility] in [facility] was reviewed patient did receive morphine Zofran and Xanax and advised to follow-up with his primary care physician. Vital Signs Vital signs: Vital Signs Pulse Rate 73 06/09/22 21:35 Pulse Rate 73 06/09/22 21:35 Medical Decision Making Vital Signs Vital Signs: Vital Signs Pulse Rate 73 06/09/22 21:35 Pulse Rate 73 06/09/22 21:35 Critical Care Time Critical Care Time Critical Care Time: No Discharge Plan Discharge Clinical Impression: Anxiety Patient Disposition: Home, Self-Care Condition: Stable Instructions: Antibiotic Form, Anxiety (ED) Additional Instructions: advised to follow-up with his primary care physician for further evaluation treatment. Prescriptions: New alprazolam [Xanax] 0.5 mg tablet 0.5 mg PO TID PRN (Reason: anxiety) Qty: 30 0RF ondansetron 4 mg tablet,disintegrating 4 mg PO Q6H PRN (Reason: nausea and vomiting) Qty: 14 0RF No Action levothyroxine 25 mcg tablet 25 mcg PO DAILY ibuprofen 800 mg tablet 800 mg PO TID Qty: 20 0RF omeprazole magnesium [Prilosec OTC] 20 mg tablet,delayed release (DR/EC) 20 mg PO BID Qty: 20 0RF famotidine 20 mg tablet 20 mg PO DAILY bupropion HCl 300 mg table
[2022-06-09] MEDS: MORPHINE SULFATE (*CRX) 4 MG/ML INJ IV PUSH (22:08)
[2022-06-09] MEDS: ALPRAZolam (*CRX) 0.5 MG TABLET PO (22:09)
[2022-06-09] MEDS: ONDANSETRON INJ 4 MG/2 ML VIAL IV PUSH (22:09)
[2022-06-09] MEDS: SODIUM CHLORIDE 0.9% IV 1,000 ML 999 ML IV CONT (22:09)
--- NOTE | 2022-06-09 22:14 | PC.NURSE ---
pt states has a doctors appt in the morning with dr shaw about everything that is going on, increased depression over not feeling well all the time. denies suicidal ideation at this time. sometimes i just start crying . to get referral for [facility] to get anxiety medications, just has not followed through yet.
--- NOTE | 2022-06-09 22:23 | PC.NURSE ---
2210 orders completed for pt. 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 explained pt not getting covid tested and is able to come back in facility to be with son, mother upset she is not getting any rest because she is always taking son to hospital and no one is helping her to help him. explained er is able to help now but that she needs to help the pt be able to follow up with multiple doctors for different issues that can not be resolved in the er. mother voiced understanding. mother confirmed pt has appt with dr shaw in the am but dr shaw has not got pt a referral for gi doctor , states they were told to find their own doctors. 2225 mother in er, referral information given for doctors requested per mother, GI--Dr Woo number given, cardiology-- dr leong number given, pamphlet for [facility] given with phone number given also. mother thankful for all information given for pt.
[2022-06-09 22:30] VITALS: BP 137/97; PULSE 79; RESP 20; TEMP 36.6; O2SAT 97
[2022-06-09 22:43] VITALS: BP 134/91; PULSE 79; RESP 20; TEMP 37.1; O2SAT 97
--- NOTE | 2022-06-09 23:04 | PC.NURSE ---
pt taken to personal vehicle per wheelchair, pt stated has a blister on foot from walking long distance in boot. voiced understanding of all discharge instructions
== END 2022-06-09 23:00 | disposition home or self-care (01) ==
PROVIDERS: Emergency Provider Emergency Medicine; PCP Family Medicine
DX: F41.9 Anxiety disorder, unspecified (principal)
CPT/HCPCS: 93005; 96361; 96374; 96375; 99284; A9270; J2270; J2405; J7030

== ENCOUNTER 2022-07-14 20:52 | Emergency (ER) | payer BC, SELFPAY ==
[2022-07-14 21:06] VITALS: BP 140/90; PULSE 100; RESP 20; TEMP 37; O2SAT 98
--- NOTE | 2022-07-14 21:11 | ED.ANXIETY ---
HPI - Anxiety General Chief Complaint: Anxiety Stated Complaint: trouble breathing Source: patient Mode of arrival: ambulatory Limitations: no limitations History of Present Illness HPI narrative: this is a 46-year-old gentleman with history of panic attacks anxiety depression recently saw Psychiatry and took him off of his Xanax and has been having panic attacks anxiety and withdrawal ever since. Currently having some nausea and episode of vomiting with no abdominal pain no chest pain no shortness of breath no diarrhea constipation. complaint: anxiety Onset (ago): day(s) Severity: mild Quality: constant Place: home Related Data Home Medications Medication Instructions Recorded Confirmed levothyroxine 25 mcg tablet 25 mcg PO DAILY 12/22/19 07/14/22 bupropion HCl 300 mg 24 hr tablet, 300 mg PO DAILY 04/13/21 07/14/22 extended release famotidine 20 mg tablet 20 mg PO DAILY 04/13/21 07/14/22 aripiprazole 5 mg tablet 5 mg PO DAILY 07/14/22 07/14/22 Allergies Allergy/AdvReac Type Severity Reaction Status Date / Time No Known Allergies Allergy Verified 05/12/22 12:51 Review of Systems Review of Systems: All systems reviewed & are unremarkable except as noted in HPI and below PMFSH Past Medical History Medical History Anxiety Depression Shoulder pain, right Social History Social History Gender identity (if verbalized by the patient): Male Exam Const: General: healthy appearing HENMT: Head: normal to inspection Face/Nose/Sinus: Normal external nose present Face and sinus: normal facial exam Eyes: Conjunctivae: conjunctivae normal Neck: Neck: normal visual inspection Chest: Chest palpation & inspection: normal inspection of the chest Resp: Effort & Inspection: normal respiratory effort Cardio: Rate: regular rate Rhythm: regular rhythm GI: GI Palp: Yes Soft to palpation Auscultation: normal bowel sounds : General: Yes bladder normal to palpation Skin: General skin exam: normal color Rashes: no rashes Neuro: General: patient oriented x3 Cranial nerves: Yes Nystagmus not present Gait exam (Neuro): Normal gait present Extrem: General: normal to inspection Psych: Mental Status: mental status grossly normal Affect: Anxious affect present Course Course Emergency Course: Patient having a panic attack anxiety and given a dose of Xanax and Zofran. Vital Signs Vital signs: Vital Signs Temperature 37.0 C 07/14/22 21:06 Pulse Rate 100 07/14/22 21:06 Respiratory Rate 20 07/14/22 21:06 Blood Pressure 140/90 07/14/22 21:06 Pulse Oximetry 98 07/14/22 21:06 Oxygen Delivery Room Air 07/14/22 21:06 Temperature 37.0 C 07/14/22 21:06 Pulse Rate 100 07/14/22 21:06 Respiratory Rate 20 07/14/22 21:06 Blood Pressure 140/90 07/14/22 21:06 Pulse Oximetry 98 07/14/22 21:06 Oxygen Delivery Room Air 07/14/22 21:06 Critical Care Time Critical Care Time Critical Care Time: No Discharge Plan Discharge Clinical Impression: Anxiety Patient Disposition: Home, Self-Care Condition: Stable Instructions: Antibiotic Form, Panic Disorder (ED), Anxiety (ED) Additional Instructions: Take medicine as prescribed and follow-up with primary care physician for further evaluation and treatment. Prescriptions: New alprazolam [Xanax] 0.5 mg tablet 0.5 mg PO TID PRN (Reason: anxiety) Qty: 20 0RF ondansetron 4 mg tablet,disintegrating 4 mg PO Q6H PRN (Reason: nausea and vomiting) Qty: 10 0RF No Action levothyroxine 25 mcg tablet 25 mcg PO DAILY ibuprofen 800 mg tablet 800 mg PO TID Qty: 20 0RF omeprazole magnesium [Prilosec OTC] 20 mg tablet,delayed release (DR/EC) 20 mg PO BID Qty: 20 0RF aripiprazole 5 mg tablet 5 mg PO DAILY famotidine 20 mg tablet 20 mg PO DAILY bupropion HCl 3
[2022-07-14] MEDS: ALPRAZolam (*CRX) 0.5 MG TABLET PO (21:14)
[2022-07-14] MEDS: ONDANSETRON HCL ODT 4 MG TABLET PO (21:14)
[2022-07-14 21:22] VITALS: BP 140/88; PULSE 98; RESP 18; TEMP 36.6; O2SAT 98
== END 2022-07-14 21:32 | disposition home or self-care (01) ==
LOC: CHSED 21:17
PROVIDERS: Emergency Provider Emergency Medicine; PCP Family Medicine
DX: F41.9 Anxiety disorder, unspecified (principal)
CPT/HCPCS: 99283; A9270

== ENCOUNTER 2022-07-22 16:22 | Outpatient (CLI) | payer BC, SELFPAY ==
--- NOTE | ~2022-07-22 | XR_ITS ---
EXAM: XR knee RT 3V, XR knee LT 3V DATE: 07/22/2022 16:45 HISTORY: BILATERAL KNEE PAIN. NO KNOWN INJURY. . COMPARISON: None available. FINDINGS: Normal mineralization. No fracture or dislocation. No lytic or blastic lesion. Mild bilate ral medial joint space narrowing. Minimal tricompartmental osteophytosis. No erosion or periosteal ch mari. Soft tissues within normal limits. IMPRESSION: Mild osteoarthritic changes of the knees. Reviewed, dictated and finalized at location [facility] [employer] IMPRESSION: Mild osteoarthritic changes of the knees.
== END 2022-07-22 16:23 | disposition home or self-care (01) ==
LOC: CHSIMG 16:23
PROVIDERS: PCP Family Medicine; Visit Provider Family Medicine
DX: M25.561 Pain in right knee (principal); M25.562 Pain in left knee
CPT/HCPCS: 73562

== ENCOUNTER 2022-07-24 18:34 | Emergency (ER) | payer BC, SELFPAY ==
--- NOTE | 2022-07-24 18:43 | ED.ANXIETY ---
HPI - Anxiety General Chief Complaint: Anxiety Stated Complaint: hard time breathing, heart problems Time Seen by Provider: 07/24/22 18:35 Source: patient and RN notes reviewed Mode of arrival: ambulatory Limitations: no limitations History of Present Illness HPI narrative: patient states he has been on Abilify for about 1 month. He Googled his symptoms and found that it may cause him some shortness of breath and chest heaviness. He was recently given Xanax 10 pills and now he is out of those. He says he is feeling anxious again. He sees a psychiatrist tomorrow. complaint: anxiety Onset (ago): day(s) (2) Symptoms: dyspnea Severity: moderate Quality: intermittent Place: home History of similar episodes: Yes Provoking factors: emotional stress and medication change Relieving factors: nothing Exacerbating factors: nothing Associated symptoms: shortness of breath Related Data Home Medications Medication Instructions Recorded Confirmed levothyroxine 25 mcg tablet 25 mcg PO DAILY 12/22/19 07/14/22 bupropion HCl 300 mg 24 hr tablet, 300 mg PO DAILY 04/13/21 07/14/22 extended release famotidine 20 mg tablet 20 mg PO DAILY 04/13/21 07/14/22 aripiprazole 5 mg tablet 5 mg PO DAILY 07/14/22 07/14/22 Allergies Allergy/AdvReac Type Severity Reaction Status Date / Time No Known Allergies Allergy Verified 05/12/22 12:51 Review of Systems Review of Systems: All systems reviewed & are unremarkable except as noted in HPI and below Constitutional: Constitutional: Denies chills and Denies fever(s) Cardiovascular: Cardiovascular: Denies chest pain and Denies rapid heart rate PMFSH Past Medical History Medical History Anxiety Depression Shoulder pain, right Social History Social History (Updated 07/24/22 @ 18:54 by Jeovanny Dolan MD) Substance use: current Substance use type: marijuana Gender identity (if verbalized by the patient): Male Exam Const: General: healthy appearing, no acute distress and alert Nutritional Appearance: well nourished Orientation/consciousness: patient oriented x3 HENMT: Head: normal to inspection Ears: external ears normal Eyes: Conjunctivae: conjunctivae normal Pupils: Equal, round and reactive pupils present EOM: EOMs intact bilaterally Neck: Neck: normal visual inspection Resp: Effort & Inspection: normal respiratory effort Auscultation: clear to auscultation bilaterally Cardio: Rate: regular rate Rhythm: regular rhythm GI: GI Palp: Yes Soft to palpation and No Tenderness to palpation present (GI) Auscultation: normal bowel sounds Back/Spine/Pelvis: Cervical Spine: cervical ROM normal Thoracic/Lumbar Spine: thoraco-lumbar ROM normal Skin: General skin exam: normal color Rashes: no rashes Neuro: General: patient oriented x3, moves all extremities, no focal motor deficits and CN's II-XI intact bilaterally Speech: normal speech Gait exam (Neuro): Normal gait present Extrem: General: normal to inspection and no clubbing, cyanosis or edema Psych: Mental Status: mental status grossly normal Affect: Anxious affect present Attitude: cooperative Discharge Plan Discharge Clinical Impression: Acute anxiety Patient Disposition: Home, Self-Care Condition: Stable Instructions: Anxiety (ED) Additional Instructions: Follow-up with your psychiatrist to adjust her medications and for them to prescribe any other anxiety medications you may need. Prescriptions: No Action levothyroxine 25 mcg tablet 25 mcg PO DAILY ibuprofen 800 mg tablet 800 mg PO TID Qty: 20 0RF omeprazole magnesium [Prilosec OTC] 20 mg tablet,delayed release (DR/EC) 20 mg PO BID Qty: 20 0RF aripiprazole 5 mg tablet 5 mg PO DAILY alprazolam [Xanax] 0.5 mg tablet 0.5 mg PO TID PRN (Reason: anxiety) Qty: 20 0RF Label Comments: I AM OUT ondansetron 4 mg tablet,disintegrating 4 mg PO Q
[2022-07-24 18:44] VITALS: BP 158/92; PULSE 100; RESP 20; TEMP 36.9; O2SAT 99
[2022-07-24] MEDS: chlordiazePOXIDE (*CRX) 10 MG CAPSULE PO (19:13)
[2022-07-24 19:32] VITALS: BP 140/90; PULSE 100; RESP 20; TEMP 36.6; O2SAT 98
== END 2022-07-24 19:33 | disposition home or self-care (01) ==
PROVIDERS: Emergency Provider Emergency Medicine; PCP Family Medicine
DX: F41.9 Anxiety disorder, unspecified (principal)
CPT/HCPCS: 99283; A9270

== ENCOUNTER 2022-11-16 21:45 | Emergency (ER) | payer BC, SELFPAY ==
[2022-11-16 21:47] VITALS: BP 172/111; PULSE 99; RESP 18; TEMP 36.9; O2SAT 98
--- NOTE | 2022-11-16 21:47 | ED.BACK ---
HPI - Back Pain/Injury General Chief Complaint: Back Pain/Injury Stated Complaint: Back Pain Time Seen by Provider: 11/16/22 21:47 Source: patient and RN notes reviewed Mode of arrival: ambulatory Limitations: no limitations History of Present Illness HPI Narrative: patient states that he was using a shovel to drain day got a culvert. He was turned sideways and then digging in lifting at the same time. He felt a sudden sharp pain in his lower back. He was able to continue working until he was able to come in for the pain is a got worse throughout the evening. MD elicited complaint: back injury Onset (ago): hour(s) (3.5) Timing: constant Severity: severe Quality: dull, aching and spasming Location: lumbar spine Radiation: none Exacerbating factors: movement and walking Relieving factors: none Context: turning/twisting ( digging out a culvert) Associated symptoms: denies other symptoms Work related injury: Yes Related Data Home Medications Medication Instructions Recorded Confirmed levothyroxine 25 mcg tablet 25 mcg PO DAILY 12/22/19 07/24/22 bupropion HCl 300 mg 24 hr tablet, 300 mg PO DAILY 04/13/21 07/24/22 extended release famotidine 20 mg tablet 20 mg PO DAILY 04/13/21 07/24/22 aripiprazole 5 mg tablet 5 mg PO DAILY 07/14/22 07/24/22 Allergies Allergy/AdvReac Type Severity Reaction Status Date / Time No Known Allergies Allergy Verified 05/12/22 12:51 Review of Systems Review of Systems: All systems reviewed & are unremarkable except as noted in HPI and below PMFSH Past Medical History Medical History Anxiety Depression Shoulder pain, right Social History Social History Substance use: current Substance use type: marijuana Gender identity (if verbalized by the patient): Male Exam Const: General: healthy appearing, alert and ill appearing acutely ( appears in pain from his back) Nutritional Appearance: well nourished Orientation/consciousness: patient oriented x3 Limitations: no limitations HENMT: Head: normal to inspection Ears: external ears normal Face/Nose/Sinus: Normal external nose present Face and sinus: normal facial exam Mouth: Yes moist mucous membranes Eyes: Conjunctivae: conjunctivae normal Pupils: Equal, round and reactive pupils present EOM: EOMs intact bilaterally Neck: Neck: normal visual inspection Resp: Effort & Inspection: normal respiratory effort Auscultation: clear to auscultation bilaterally Cardio: Rate: regular rate Rhythm: regular rhythm GI: GI Palp: Yes Soft to palpation and No Tenderness to palpation present (GI) Auscultation: normal bowel sounds Back/Spine/Pelvis: Cervical Spine: cervical ROM normal Thoracic/Lumbar Spine: straight leg raise negative bilaterally, pain with thoraco-lumbar ROM, thoraco-lumbar ROM limited with forward flexion ( able to reach 70?), thoraco-lumbar spasm on the left in the lower lumbar and lumbar spinal tenderness at L4 (mild) Skin: General skin exam: normal color Rashes: no rashes Neuro: General: patient oriented x3, moves all extremities, no focal motor deficits and CN's II-XI intact bilaterally Speech: normal speech Gait exam (Neuro): Normal gait present Motor exam (neuro): 5/5 motor strength present throughout ( lower extremities) Deep tendon reflexes (DTR's): Right patellar reflex intensity grade: 2+, Left patellar reflex intensity grade: 2+, Right ankle reflex intensity grade: 2+ and Left ankle reflex intensity grade: 2+ Extrem: General: normal to inspection and no clubbing, cyanosis or edema Psych: Mental Status: mental status grossly normal Affect: normal affect Attitude: cooperative Course Vital Signs Vital signs: Vital Signs Temperature 36.9 C 11/16/22 21:47 Pulse Rate 99 11/16/22 21:47 Respiratory Rate 18 11/16/22 21:47 Blood Pressure 172/111 H 11/16/22 21:47 Pulse Oximetry 98 0
[2022-11-16] MEDS: KETOROLAC (*BKC) 60 MG/2 ML VIAL IM (21:58)
[2022-11-16] MEDS: ORPHENADRINE CITRATE 30 MG/ML 2 ML VIAL 60 MG IM (21:58)
[2022-11-16 22:14] VITALS: BP 139/89; PULSE 78; RESP 20; TEMP 36.7; O2SAT 100
== END 2022-11-16 22:16 | disposition home or self-care (01) ==
PROVIDERS: Emergency Provider Emergency Medicine
DX: S39.012A Strain of muscle, fascia and tendon of lower back, initial encounter (principal); F41.9 Anxiety disorder, unspecified; F32.A Depression, unspecified; X50.0XXA Overexertion from strenuous movement or load, initial encounter; Y99.0 Civilian activity done for income or pay
CPT/HCPCS: 96372; 99283; J1885; J2360

== ENCOUNTER 2023-03-06 18:00 | Emergency (ER) | payer BC, SELFPAY ==
[2023-03-06 18:00] VITALS: BP 128/102; PULSE 118; RESP 20; TEMP 36.9; O2SAT 96
[2023-03-06 18:11] VITALS: BP 128/102; PULSE 118; RESP 20; TEMP 36.9; O2SAT 96
--- NOTE | 2023-03-06 18:14 | ECG_ITS ---
Measurements Intervals [place] Rate: 99 P: 40 NM: 181 QRS: 47 QRSD: 106 T: 7 QT: 335 QTc: 430 Interpretive Statements SINUS RHYTHM POSSIBLE LEFT ATRIAL ENLARGEMENT DELAYED PRECORDIAL R/S TRANSITION NONSPECIFIC ST ELEVATION IN DIFFUSE LEADS BASELINE ARTIFACT- I, III, AVL BORDERLINE ECG COMPARED TO ECG 06/09/2022 21:47:58 NORMAL ECG Electronically Signed On 03-06-2023 21:13:57 CDT by Michael Frazier D.O.
[2023-03-06] MEDS: LORazepam INJ (*CRX) 2 MG/ML VIAL 1 MG IV PUSH (18:24)
--- NOTE | 2023-03-06 18:33 | ED.GENADULT ---
HPI - General Adult General Chief complaint: Anxiety Stated complaint: anxiety Time Seen by Provider: 03/06/23 18:11 History of Present Illness HPI narrative: Al is a 47M with a PMH of anxiety/depression, HLD and hypothyroidism that presented to the ED with anxiety. He reports that he took a hybrid THC gummy from a dispensary earlier today and shortly after had palpitations, anxiety, and tingling in his fingers. There is no SI/HI, hallucinations or delusions. There is no deep chest pain, dyspnea or vomiting. Related Data Home Medications Medication Instructions Recorded Confirmed levothyroxine 25 mcg tablet 25 mcg PO DAILY 12/22/19 03/06/23 bupropion HCl 300 mg 24 hr tablet, 300 mg PO DAILY 04/13/21 03/06/23 extended release Allergies Allergy/AdvReac Type Severity Reaction Status Date / Time No Known Allergies Allergy Verified 03/06/23 18:09 Review of Systems Review of Systems: All systems reviewed & are unremarkable except as noted in HPI and below PMFSH Past Medical History Medical History Anxiety Depression Shoulder pain, right Social History Social History Substance use: current Substance use type: marijuana Gender identity (if verbalized by the patient): Male Exam Const: General: healthy appearing and no acute distress Nutritional Appearance: well nourished Orientation/consciousness: patient oriented x3 HENMT: Head: normal to inspection Ears: external ears normal Face/Nose/Sinus: Normal external nose present Eyes: Conjunctivae: conjunctivae normal Pupils: Equal, round and reactive pupils present EOM: EOMs intact bilaterally Neck: Neck: normal visual inspection Chest: Chest palpation & inspection: normal inspection of the chest Resp: Effort & Inspection: normal respiratory effort Auscultation: clear to auscultation bilaterally Cardio: Rate: tachycardic Rhythm: regular rhythm GI: Inspection: non-distended GI Palp: Yes Soft to palpation and No Tenderness to palpation present (GI) Skin: General skin exam: normal color Rashes: no rashes Neuro: General: patient oriented x3 and moves all extremities Cranial nerves: Yes Nystagmus not present Speech: normal speech Extrem: General: normal to inspection Psych: Mental Status: mental status grossly normal Affect: Anxious affect present Course Course Emergency Course: Ordered EKG, labs and ativan EKG showed sinus tachycardia with a rate of 99, normal axis and <1mm of ST elevation in II but no other leads Labs largely unremarkable he felt much better after the ativan Vital Signs Vital signs: Vital Signs Temperature 98.5 F 03/06/23 18:00 Pulse Rate 118 H 03/06/23 18:00 Respiratory Rate 20 03/06/23 18:00 Blood Pressure 128/102 H 03/06/23 18:00 Pulse Oximetry 96 03/06/23 18:00 Oxygen Delivery Room Air 03/06/23 18:00 Temperature 98.9 F 03/06/23 19:33 Pulse Rate 99 03/06/23 19:33 Respiratory Rate 18 03/06/23 19:33 Blood Pressure 119/78 03/06/23 19:33 Pulse Oximetry 97 03/06/23 19:33 Oxygen Delivery Room Air 03/06/23 19:33 Medical Decision Making Vital Signs Vital Signs: Vital Signs Temperature 98.5 F 03/06/23 18:00 Pulse Rate 118 H 03/06/23 18:00 Respiratory Rate 20 03/06/23 18:00 Blood Pressure 128/102 H 03/06/23 18:00 Pulse Oximetry 96 03/06/23 18:00 Oxygen Delivery Room Air 03/06/23 18:00 Temperature 98.9 F 03/06/23 19:33 Pulse Rate 99 03/06/23 19:33 Respiratory Rate 18 03/06/23 19:33 Blood Pressure 119/78 03/06/23 19:33 Pulse Oximetry 97 03/06/23 19:33 Oxygen Delivery Room Air 03/06/23 19:33 Lab Data 03/06/23 18:30 03/06/23 18:31 Labs: Lab Results 03/06/23 03/06/23 Range/Units 18:30 18:31 WBC 7.3 (4.8-10.8) K/mm3 RBC 5.51 (4.70-6.10) M/mm3 Hgb 17.7
[2023-03-06 18:34] LABS: Basophils Absolute Auto 0.06 K/mm3 (0.00-0.10); Basophils Percent Auto 0.8 % (0.0-1.0); Eosinophils Absolute Auto 0.14 K/mm3 (0.02-0.50); Eosinophils Percent Auto 1.9 % (1.0-6.0); Hematocrit 51.2 % (40.0-54.0); Hemoglobin 17.7 g/dL (14.0-18.0); Immature Granulocyte Absolute 0.01 K/mm3 (0.00-0.00); Immature Granulocyte Percent A 0.1 % (0.0-0.0); Lymphocytes Absolute Auto 2.91 K/mm3 (1.10-4.50); Lymphocytes Percent Auto 39.8 % (18.0-42.0); Mean Corpuscular HGB Conc 34.6 g/dL (32.0-36.0); Mean Corpuscular Hemoglobin 32.1 pg (27.0-31.0); Mean Corpuscular Volume 92.9 fL (78.0-102.0); Mean Platelet Volume 10.3 fl (8.7-11.0); Monocytes Absolute Auto 0.41 K/mm3 (0.10-0.90); Monocytes Percent Auto 5.6 % (2.0-11.0); Neutrophils Absolute Auto 3.8 K/mm3 (1.7-7.2); Neutrophils Percent Auto 51.8 % (50.0-70.0); Platelet Count Result 202 K/mm3 (150-420); Red Blood Count 5.51 M/mm3 (4.70-6.10); Red Cell Distribution Width 12.8 % (11.6-14.4); White Blood Count 7.3 K/mm3 (4.8-10.8)
[2023-03-06 19:04] LABS: Alanine Aminotransferase 33 U/L (16-63); Albumin Level 3.3 g/dL (3.4-5.0); Alkaline Phosphatase 37 U/L (46-116); Anion Gap 9 mmol/L (8-16); Aspartate Amino Transferase 13 U/L (15-37); Bilirubin,Total 0.4 mg/dL (0.00-1.00); Blood Urea Nitrogen 10 mg/dL (7-18); Calcium 8.4 mg/dL (8.5-10.1); Carbon Dioxide 29 mmol/L (21-32); Chloride 106 mmol/L (98-108); Estimated CRCL calculation 74 ml/min; Estimated Glomerular Filt Rate > 60; Glucose 120 mg/dL (70-99); NT Pro B Type Natriuretic Pept 49 pg/mL (0-125); Osmolality Calculated 298 mOsm/kg (285-295); Potassium 3.9 mmol/L (3.5-5.1); Sodium 144 mmol/L (136-145); Thyroid Stimulating Hormone 2.34 uIU/mL (0.36-3.74); Total Protein 5.8 g/dL (6.4-8.2); Troponin I 5.9 ng/L (0.00-60.4)
[2023-03-06 19:33] VITALS: BP 119/78; PULSE 99; RESP 18; TEMP 37.2; O2SAT 97
== END 2023-03-06 19:49 | disposition home or self-care (01) ==
LOC: CHSED 19:46
PROVIDERS: Emergency Provider Family Medicine
DX: F12.980 Cannabis use, unspecified with anxiety disorder (principal); F41.9 Anxiety disorder, unspecified; F32.A Depression, unspecified; E03.9 Hypothyroidism, unspecified; E78.5 Hyperlipidemia, unspecified
CPT/HCPCS: 36415; 80053; 83880; 84443; 84484; 85025; 93005; 96374; 99284; J2060

== ENCOUNTER 2024-04-07 21:19 | Emergency (ER) | payer BC, SELFPAY ==
[2024-04-07 21:23] VITALS: BP 142/90; PULSE 98; RESP 20; TEMP 36.7; O2SAT 98
--- NOTE | 2024-04-07 21:33 | ED.DENTAL ---
HPI - Dental/Oral General Chief complaint: Dental/Oral Stated complaint: Upper Right Tooth Pain Time Seen by Provider: 04/07/24 21:32 Source: patient Mode of arrival: ambulatory Limitations: no limitations History of Present Illness HPI Narrative: 48 year old male presents to the Emergency Department complaining of dental pain. Onset 2 days ago. Indicates right upper tooth. Has not seen a dentist for years. Complaint: tooth pain Onset (ago): day(s) (2) Duration: constant Severity: moderate Relieving factors: nothing Exacerbating factors: nothing Related Data Home Medications Medication Instructions Recorded Confirmed levothyroxine 25 mcg tablet 25 mcg PO DAILY 12/22/19 03/06/23 bupropion HCl 300 mg 24 hr tablet, 300 mg PO DAILY 04/13/21 03/06/23 extended release Allergies Allergy/AdvReac Type Severity Reaction Status Date / Time No Known Allergies Allergy Verified 05/17/23 14:38 Review of Systems Review of Systems: All systems reviewed & are unremarkable except as noted in HPI and below Constitutional: Constitutional: Reports as per HPI, Denies chills and Denies fever(s) Eyes: Eyes: Reports as per HPI ENT: Reports system reviewed and no additional complaints, except as documented Comments: dental pain Cardiovascular: Cardiovascular: Reports as per HPI and Denies chest pain Respiratory: Respiratory: Reports as per HPI and Denies dyspnea Gastrointestinal: Gastrointestinal: Reports as per HPI, Denies diarrhea, Denies nausea and Denies vomiting Genitourinary: Genitourinary: Reports no additional male genitourinary complaints Musculoskeletal: Musculoskeletal: Reports no additional musculoskeletal complaints Neurologic: Reports system reviewed and no additional complaints, except as documented PMFSH Past Medical History Medical History Anxiety Depression Shoulder pain, right Social History Social History Substance use: current Substance use type: marijuana Gender identity (if verbalized by the patient): Male Exam Const: General: healthy appearing Nutritional Appearance: well nourished Orientation/consciousness: patient oriented x3 Limitations: no limitations Other: mild distress HENMT: Head: normal to inspection Ears: external ears normal Face/Nose/Sinus: Normal external nose present Teeth and gingiva: abnormal tooth and associated gingiva (no obvious dental decay or caries. gingiva normal) Throat: posterior oropharynx normal Eyes: Pupils: Equal, round and reactive pupils present EOM: EOMs intact bilaterally Direct Ophthalmoscopy: no photophobia Neck: Neck: normal visual inspection and no meningeal signs Chest: Chest palpation & inspection: normal inspection of the chest Resp: Effort & Inspection: normal respiratory effort Auscultation: clear to auscultation bilaterally Cardio: Rate: regular rate Rhythm: regular rhythm GI: Inspection: non-distended Skin: General skin exam: normal color Rashes: no rashes Neuro: General: patient oriented x3 and no meningeal signs Speech: normal speech Gait exam (Neuro): Normal gait present Other: grossly normal Extrem: General: normal to inspection Psych: Mental Status: mental status grossly normal Course Course Emergency Course: 48 y/o male presents to the ED c/o dental pain. Onset several days ago. Pain right upper PE: no obvious dental decay or caries, gingiva normal Tx: Augmentin 875 mg po, [place] 10 mg po Rx and Instructions Vital Signs Vital signs: Vital Signs Temperature 36.7 C 04/07/24 21:23 Pulse Rate 98 04/07/24 21:23 Respiratory Rate 20 04/07/24 21:23 Blood Pressure 142/90 H 04/07/24 21:23 Pulse Oximetry 98 04/07/24 21:23 Oxygen Delivery Room Air 04/07/24 21:23 Temperature 36.7 C 04/07/24 21:23 Pulse Rate 98 04/07/24 21:23 Respiratory Rat
[2024-04-07] MEDS: HYDROcodone/acetaminophen (*CRX) 10-325 MG TABLET 1 TAB PO (21:39)
[2024-04-07] MEDS: AMOXICILLIN/CLAVULANATE K 875-125 MG TAB 1 TABLET PO (21:39)
[2024-04-07 21:54] VITALS: BP 132/89; PULSE 80; RESP 18; TEMP 36.6; O2SAT 97
== END 2024-04-07 21:54 | disposition home or self-care (01) ==
PROVIDERS: Emergency Provider Emergency Medicine
DX: K08.89 Other specified disorders of teeth and supporting structures (principal)
CPT/HCPCS: 99283; A9270